=== PATIENT | male | born 1960 | race Caucasian/White ===

== ENCOUNTER 2019-11-23 22:54 | Emergency (ER) | payer OTHER ==
[~2019-11-23] VITALS: Ht 180.3 cm; Wt 99.8 kg
[2019-11-23] MEDS ORDERED: SODIUM CHLORIDE 0.9% 1,000 ML IV ONE (23:15)
[2019-11-23] MEDS ORDERED: ONDANSETRON HCL 4 MG/2 ML VIAL IV ONE (23:15)
[2019-11-23] MEDS ORDERED: HYDROmorphone HCL 2 MG/ML VL IV ONE (23:15)
[2019-11-23] MEDS ORDERED: PIPERACILLIN-TAZO 4.5GM 100 ML IV ONE (23:15)
[2019-11-23] MEDS ORDERED: CLINDAMYCIN 900MG IV 50 ML IV ONE (23:30)
[2019-11-23] MEDS ORDERED: levoFLOXacin 750MG 150 ML IV ONE (23:30)
[2019-11-24 00:06] LABS: Hematocrit 28.4 % (41.0-53.0); Hemoglobin 9.4 g/dL (13.5-17.5); Mean Corpuscular Hemoglobin 31.4 pg (28.0-32.0); Mean Corpuscular Hgb Conc. 32.9 g/dL (32.0-36.0); Mean Corpuscular Volume 95.3 fL (80.0-100.0); Platelet Count (auto) 277 10^3/uL (140-450); Red Blood Cells 2.99 10^6/uL (4.5-5.90); Red Cell Distribution Width 15.9 % (11.8-14.3)
[2019-11-24 00:14] LABS: Urine Amorphous Crystal FEW /hpf (None Seen); Urine Bacteria FEW /hpf (None Seen); Urine Blood TRACE /uL (Negative); Urine Hyaline Cast MOD /lpf (0 - 2); Urine Specific Gravity 1.016 (1.001-1.035); Urine WBC 2 /hpf (0 - 3)
[2019-11-24 00:16] LABS: Basophils % (manual) 0 (0.0-2.0); Blast Cells 0; Metamyelocytes % 0; Myelocytes % 0; Promyelocytes % 0; Reactive Lymphocytes 0
[2019-11-24 00:17] LABS: INR 1.38 (0.9-1.15); Partial Thromboplastin Time 30.9 sec (23.0-31.2)
[2019-11-24 00:24] LABS: Albumin 1.6 g/dL (3.4-5.0); Calcium 8.3 mg/dL (8.5-10.1); Magnesium 2.4 mg/dL (1.6-2.6); Potassium 4.3 mmol/L (3.5-5.1)
[2019-11-24 00:26] LABS: Bilirubin, Total 22.8 mg/dL (0.2-1.0); Total Protein 5.5 g/dL (6.4-8.2)
[2019-11-24 00:50] LABS: Band Neutrophils % (manual) 2; Eosinophils % (manual) 1 (0-7); Lymphocytes % (manual) 6 (10.0-50.0); Monocytes % (manual) 7 (0-12)
[2019-11-24 02:40] LABS: Lactic Acid w/Reflex 3.8 mmol/L (0.4-2.0)
[2019-11-24 03:46] LABS: CRP High Sensitivity 9.59 mg/dL (< 0.3)
[2019-11-24] MEDS ORDERED: HYDROmorphone HCL 2 MG/ML VL IV ONE ×2 (05:45→14:45)
[2019-11-24] MEDS ORDERED: ONDANSETRON HCL 4 MG/2 ML VIAL IV ONE (05:45)
[2019-11-24 08:25] LABS: Potassium 4.6 mmol/L (3.5-5.1)
[2019-11-24 09:13] LABS: Calcium 7.7 mg/dL (8.5-10.1)
[2019-11-24 09:30] LABS: BUN/Creatinine Ratio 14.5
[2019-11-24 15:35] VITALS: BP 110/62
== END 2019-11-24 15:52 | disposition short-term general hospital (02) ==
LOC: ER 23:01
DX: C22.0 Liver cell carcinoma (principal); A41.9 Sepsis, unspecified organism; Z20.828 Contact with and (suspected) exposure to other viral communicable diseases
CPT/HCPCS: 36415; 70450; 71045; 76705; 80048; 80053; 81001; 82140; 83605; 83615; 83735; 83880; 85007; 85027; 85610; 85730; 86141; 87040; 87086; 87426; 96365; 96366; 96368; 96375; 96376; 99285; J1170; J1956; J2405; J3490; 96367